=== PATIENT | female | born 1990 | race Caucasian/White ===

== ENCOUNTER 2024-11-18 07:21 | Emergency (ER) | payer OTHER ==
[~2024-11-18] VITALS: Ht 170.2 cm; Wt 52.6 kg
[2024-11-18 07:23] VITALS: BP 110/78
== END 2024-11-18 08:00 | disposition home or self-care (01) ==
LOC: ER 07:21
DX: F41.9 Anxiety disorder, unspecified (principal); Z59.00 Homelessness unspecified; Z60.2 Problems related to living alone
CPT/HCPCS: A4606; A4663